=== PATIENT | female | born 1990 | race Hispanic/Latino ===

== ENCOUNTER 2021-05-04 08:06 | Inpatient (IN) | payer OTHER ==
[2021-05-04] MEDS ORDERED: hydrALAZINE 20 MG/ML VIAL SLOW IVP PRN (08:43)
[2021-05-04 09:11] VITALS: BMI 33.5
[2021-05-04 09:36] LABS: Fetal Membranes Rupture RUPTURE DETECTED (No Rupture)
[2021-05-04] MEDS ORDERED: Promethazine HCl 25 MG/ML VIAL IM PRN (10:00)
[2021-05-04] MEDS ORDERED: Ondansetron PF 4 MG/2 ML Vial IVP PRN (10:00)
[2021-05-04] MEDS ORDERED: Misoprostol 200 MCG TAB PR PRN (10:00)
[2021-05-04] MEDS ORDERED: Carboprost 250 MCG/ML AMP IM PRN (10:00)
[2021-05-04] MEDS ORDERED: NS w/ Oxytocin 30 units 500 ML IV SCH (10:00)
[2021-05-04] MEDS ORDERED: Lidocaine 1% (PF) 30 ML VIAL SC PRN (10:00)
[2021-05-04] MEDS ORDERED: Methylergonovine 0.2 MG/ML VIAL IM PRN (10:00)
[2021-05-04] MEDS ORDERED: Ibuprofen 800 MG TAB PO PRN (10:00)
[2021-05-04] MEDS ORDERED: Acetaminophen 500 MG TAB PO PRN (10:00)
[2021-05-04 10:54] LABS: Hemoglobin 11.8 g/dL (12.0-15.5); Mean Corpuscular HGB CONC 34.2 g/dL (32.0-36.0); Mean Corpuscular Hemoglobin 29.6 pg (27.0-33.0); Mean Corpuscular Volume 86.7 fl (81.6-98.3); Mean Platelet Volume 9.7 fl (7.4-10.4); Platelet Count 331 10x3/uL (150-450); RBC Distribution Width 15.4 % (11.5-14.5); Red Blood Cell (RBC) Count 3.98 10x6/uL (3.90-5.03); White Blood Cell (WBC) Count 12.3 10x3/uL (3.5-10.5)
[2021-05-04 11:25] LABS: Hep B Surf Ag Non-Reactive S/CO (NonReactive)
[2021-05-04 11:26] LABS: SARS-CoV-2 NAA Rapid Test Not Detected (NotDetected)
[2021-05-04 11:27] LABS: Syphilis Antibody Nonreactive (Nonreactive); Syphilis Antibody Index 0.02 S/CO (<1.00 Non-Reactive)
[2021-05-04 11:53] LABS: HBSAg Index 0.19 S/CO (0-0.99)
[2021-05-05] MEDS ORDERED: hydrALAZINE 20 MG/ML VIAL SLOW IVP PRN (09:15)
[2021-05-05] MEDS ORDERED: Promethazine HCl 25 MG/ML VIAL IM PRN (09:15)
[2021-05-05] MEDS ORDERED: diphenhydrAMINE 25 MG CAP PO PRN (09:15)
[2021-05-05] MEDS ORDERED: Benzocaine-Menthol 82.5 ML CAN TOP PRN (09:15)
[2021-05-05] MEDS ORDERED: Lanolin Ointment 7 GM TUBE TOP PRN (09:15)
[2021-05-05] MEDS ORDERED: Ondansetron PF 4 MG/2 ML Vial IVP PRN (09:15)
[2021-05-05] MEDS ORDERED: NS w/ Oxytocin 30 units 500 ML IV SCH (09:15)
[2021-05-05] MEDS ORDERED: HYDROcodone/Acetaminophen 5/325 mg Tablet PO PRN (09:15)
[2021-05-05] MEDS ORDERED: Milk Of Magnesia 30 ML UDCUP PO PRN (09:15)
[2021-05-05] MEDS ORDERED: Bisacodyl 10 MG SUPP PR PRN (09:15)
[2021-05-05] MEDS ORDERED: Boostrix 0.5 ML (Tdap) VIAL IM ONE (09:15)
[2021-05-05] MEDS ORDERED: Docusate Calcium (SURFAK) 240 MG CAP PO SCH (09:30)
[2021-05-05] MEDS ORDERED: Prenatal Vitamin 1 TAB PO SCH (09:30)
[2021-05-05] MEDS: Ibuprofen 800 MG TAB PO SCH ×2 (13:41→21:37)
[2021-05-05] MEDS: Ferrous Sulfate 325 MG TAB PO SCH (17:26)
[2021-05-05] MEDS: Docusate Calcium (SURFAK) 240 MG CAP PO SCH (21:38)
[2021-05-06] MEDS: Ibuprofen 800 MG TAB PO SCH ×2 (05:55→14:53)
[2021-05-06] MEDS: Ferrous Sulfate 325 MG TAB PO SCH (07:24)
[2021-05-06 07:41] VITALS: BP 109/65; TEMP 98.2
[2021-05-06] MEDS: Docusate Calcium (SURFAK) 240 MG CAP PO SCH (08:45)
[2021-05-06] MEDS ORDERED: Prenatal Vitamin 1 TAB PO SCH (09:00)
== END 2021-05-06 15:50 | disposition home or self-care (01) | DRG 807 ==
LOC: CSHLD/OP 08:06 → CSHLD 19:05 → CSHPED 05-05 10:35
PROVIDERS: ADMIT Family Medicine; ATTEND Family Medicine
PROC: 10E0XZZ Delivery of Products of Conception, External Approach (ICD-10-PCS; principal; 2021-05-04)
PROC: 0KQM0ZZ Repair Perineum Muscle, Open Approach (ICD-10-PCS; 2021-05-04)
DX: O34.211 Maternal care for low transverse scar from previous cesarean delivery (principal); Z37.0 Single live birth; Z20.822 Contact with and (suspected) exposure to COVID-19; Z3A.39 39 weeks gestation of pregnancy; O70.1 Second degree perineal laceration during delivery
CPT/HCPCS: 36415; 84112; 85027; 86780; 86850; 86900; 86901; 87340; 99285; U0002